=== PATIENT | female | born 1960 ===

== ENCOUNTER 2022-04-08 07:49 | Outpatient (CLI) | payer OTHER | END 2022-04-08 07:50 | disposition home or self-care (01) | LOC: LAB 07:49 | PROVIDERS: ATTEND Obstetrics & Gynecology Gynecology | DX: R07.9 Chest pain, unspecified (principal); I10 Essential (primary) hypertension ==

== ENCOUNTER → 2022-04-15 06:16 | Outpatient (CLI) | payer OTHER | END | disposition home or self-care (01) | LOC: LAB 06:16 | PROVIDERS: ATTEND Obstetrics & Gynecology Gynecology | DX: D64.9 Anemia, unspecified (principal); D68.9 Coagulation defect, unspecified; N39.0 Urinary tract infection, site not specified; D78.89 Other postprocedural complications of the spleen ==

== ENCOUNTER 2022-04-30 07:10 | Day surgery (SDC) | payer OTHER ==
[~2022-04-30 07:10] MED LIST: ATACAND32 MG PO; ESCITALOPRAM; FAMOTIDINE; GLIMEPIRIDE4 M1 PO; HYDROCHLOROTH12.5 MG PO; LEVO-T50 MCG PO; SIMVASTATIN; SYNJARDY XR 251 EACH PO; TAMOXIFEN CITRA20 MG PO; TOPROL XL50 M1 PO; TRAZODONE
[2022-04-30] MEDS ORDERED: MACROBID 100 M100 MG PO (12:24)
[2022-04-30] MEDS ORDERED: TRAM1TAB98 PO (12:28)
== END 2022-04-30 15:35 | disposition home or self-care (01) ==
LOC: CIR.AMB 07:10
PROVIDERS: ATTEND Obstetrics & Gynecology Gynecology
DX: N81.11 Cystocele, midline (principal); N81.6 Rectocele; N81.5 Vaginal enterocele; Z20.822 Contact with and (suspected) exposure to COVID-19; I10 Essential (primary) hypertension; E03.9 Hypothyroidism, unspecified